=== PATIENT | male | born 1990 | race Caucasian/White ===

== ENCOUNTER 2017-02-24 17:21 | Emergency (ER) | payer SELFPAY ==
[~2017-02-24] VITALS: Ht 154.9 cm; Wt 82.0 kg
[2017-02-24] MEDS ORDERED: KETOROLAC 60MG/2ML VIAL IM ONE (20:45)
[2017-02-24 22:28] VITALS: BP 106/69
== END 2017-02-24 22:29 | disposition home or self-care (01) ==
LOC: ER 17:52
DX: S09.90XA Unspecified injury of head, initial encounter (principal); V03.10XA Pedestrian on foot injured in collision with car, pick-up truck or van in traffic accident, initial encounter; Y93.89 Activity, other specified; Y92.488 Other paved roadways as the place of occurrence of the external cause
CPT/HCPCS: 70450; 96372; 99284; J1885; Z7610

== ENCOUNTER 2018-01-03 17:10 | Emergency (ER) | payer SELFPAY ==
[~2018-01-03] VITALS: Ht 154.9 cm; Wt 82.0 kg
[2018-01-04 01:45] VITALS: BP 115/83
== END 2018-01-04 02:36 | disposition home or self-care (01) ==
LOC: ER 20:14
DX: S00.83XA Contusion of other part of head, initial encounter (principal); V43.62XA Car passenger injured in collision with other type car in traffic accident, initial encounter; Y93.89 Activity, other specified; Y92.488 Other paved roadways as the place of occurrence of the external cause
CPT/HCPCS: 99282